=== PATIENT | female | born 1945 | race African-American/Black ===

== ENCOUNTER 2017-02-12 13:57 | Emergency (ER) | payer OTHER | END 2017-02-12 16:40 | disposition home or self-care (01) | LOC: ER 13:57 | DX: M54.2 Cervicalgia (principal); E11.9 Type 2 diabetes mellitus without complications; I10 Essential (primary) hypertension; Z91.040 Latex allergy status; V49.9XXA Car occupant (driver) (passenger) injured in unspecified traffic accident, initial encounter | CPT/HCPCS: 99284 ==